=== PATIENT | female | born 1940 | race Caucasian/White ===

== ENCOUNTER → 2021-06-18 16:34 | Outpatient (BNVA) | payer MEDICARE, SELFPAY | PROVIDERS: Family Provider Internal Medicine; PCP Specialist; Visit Provider Family Medicine | DX: M25.442 Effusion, left hand (principal); W19.XXXA Unspecified fall, initial encounter | CPT/HCPCS: 73130; 81000 ==

== ENCOUNTER → 2022-10-24 16:24 | Outpatient (BNVA) | payer MEDICARE, SELFPAY | PROVIDERS: Family Provider Internal Medicine; PCP Specialist; Visit Provider Nurse Practitioner Family | DX: R30.0 Dysuria (principal) | CPT/HCPCS: 81000; 81003 ==

== ENCOUNTER → 2022-11-01 13:53 | Outpatient (BNVA) | payer MEDICARE, SELFPAY | PROVIDERS: Family Provider Internal Medicine; PCP Nurse Practitioner Family; Visit Provider Nurse Practitioner Family | DX: Z20.822 Contact with and (suspected) exposure to COVID-19 (principal); R53.83 Other fatigue; R68.89 Other general symptoms and signs | CPT/HCPCS: 87426 ==

== ENCOUNTER 2023-10-20 14:02 | Emergency (ER) | payer MEDICARE, SELFPAY ==
[2023-10-20 14:11] VITALS: BP 148/75; PULSE 71; TEMP 37.1; O2SAT 95; BMI 29.2
--- NOTE | 2023-10-20 14:20 | ED_ITS ---
HPI - Abdominal Pain 2 General: Chief Complaint: Abdominal Pain Stated Complaint: ABD PAIN Time Seen by Provider: 10/20/23 14:05 Source: patient Mode of arrival: ambulatory History of Present Illness: 83-year-old moderately demented female f rom the shelter comes with complaints of having been sick for last couple of weeks she lives at a shelter states her body is sore unable to give her much more specific than that there is no history of fever she did request to go the bathroom several times believe she is having frequency of urination although I cannot get her to admit she has any burning with urination. No fever on arrival here. No other history obtained because of her baseline dementia MD elicited complaint: abdominal pain Associated Symptoms: Denies chills and fever(s) Review of Systems 2 Const: Denies: fever(s) or chills Card: Denies: chest pain Resp: Denies: dyspnea GI: Denies: abdominal pain : Reports: urinary frequency Skin/Breast: Denies: rash PFSH ED 2 PFSH: Social History Smoking and tobacco/nicotine status: never used tobacco/nicotine Alcohol intake: never Physical Exam 2 Const: GENERAL APPEARANCE: cooperative and comfortable O RIENTATION/CONSCIOUSNESS: Yes awake HENMT: COMMON NORMALS: normocephalic, atraumatic and hearing grossly normal bilaterally HEAD & SCALP: normocephalic and atraumatic Resp: COMMON NORMALS: normal respiratory effort, No retractions, No use of accessory muscles and clear to auscultation bilaterally AUSCULTATION: clear to auscultation bilaterally Cardio: COMMON NORMALS: regular rate, regular rhythm and No murmurs present (Cardio) RATE: regular rate RHYTHM: regular rhythm GI: COMMON NORMALS: Soft to palpation and No hepatosplenomegaly present A USCULTATION: Yes normoactive bowel sounds PALPATION: Yes Soft to palpation, No Tenderness to palpation present (GI), No Guarding due to palpation present (GI) and Yes No hepatosplenomegaly present Extremity: COMMON NORMALS: normal to inspection, capillary refill normal, no clubbing, cyanosis or edema, no calf tenderness and no pedal edema Skin: COMMON NORMALS: no rashes or lesions noted GENERAL SKIN EXAM: no rashes or lesions noted Course 2 Vital Signs: Vital signs: Vital Signs Temperature 98.8 F 10/20/23 14:11 Pulse Rate 61 10/20/23 16:43 Respiratory Rate 18 10/20/23 16:43 Blood Pressure 173/84 10/20/23 16:43 Pulse Oximetry 98 10/20/23 16:43 Oxygen Delivery Me thod Room Air 10/20/23 16:43 MDM - Abdominal Pain Medical Decision Making Lipase is elevated but there is no evidence of pancreatitis on CT white count normal she does have a mild bladder infection was started on Macrobid twice daily and follow-up through her primary care return to the shelter today. Medical Records I reviewed the patient's medical records. Lab Data I reviewed the patient's lab results. 10/20/23 16:10 10/20/23 16:17 Labs/Radiology: Radiology Impressions Abdomen/Pelvis CT 10/20/23 14:28 IMPRESSION: 1. Images through the lower chest suggests small pericardial effusion and [id number] hiatal hernia. 2. Hyperdensity is seen layering within the dependent gallbladder, sludge and/or stones. Consider further evaluation with fasting gallbladder ultrasound. 3. Colonic diverticulosis, more prominent sigmoid colon, without CT findings of diverticulitis. 4. 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 Laboratory Results WBC 6.59 10^3/uL (3.29-11.43) 10/20/23 16:10 RBC 3.93 10^6/uL (3.85-5.65) 10/20/23 16:10 Hgb 10.70 g/dL (11.27-16.99) L 10/20/23 16:10 Hct 36.9 % (36-47) 10/20/23 16:10 MCV 93.9 fl (85-98) 10/20/23 16:10 MCH 27.2 pg (27-33) 10/20/23 16:10 MCHC 29.0 g/dL (30-55) L 10/20/23 16:10 RDW 16.8 % (12.1-15.1) H 10/20/23 16:10 Plt Count 394 10^3/cmm (157-399) 10/20/23 16:10 MPV 10.3 fL (7.4-10.4) 10/20/23 16:10 Neut % (Auto) 68.3 % 10/20/23 16:10 Lymph % (Auto) 19.6 % 10/20/23 16:10 [place] % (Auto) 10.2 % 10/20/23 16:10 Eos % (Auto) 1.1 % 10/20/23 16:10 Baso % (Auto) 0.5 % 10/20/23 16:10 Neut # (Auto) 4.51 10^3/uL (1.8-7.7) 10/20/23 16:10 Lymph # (Auto) 1.3 10^3/uL (0.8-4.8) 10/20/23 16:10 [place] # (Auto) 0.7 10^3/uL (0.2-0.9) 10/20/23 16:10 Eos # (Auto) 0.1 10^3/uL (0.0-0.8) 10/20/23 16:10 Baso # (Auto) 0.0 10^3/uL (0.0-0.1) 10/20/23 16:10 Nucleated RBC % (auto) 0 % 10/20/23 16:10 Nucleated RBCs # 0.0 /100WBC 10/20/23 16:10 Sodium 141 mmol/L (136-145) 10/20/23 16:17 Potassium 3.6 mmol/L (3.5-5.1) 10/20/23 16:17 Chloride 105 mmol/L (98-107) 10/20/23 16:17 Carbon Dioxide 19 mmol/L (22-29) L 10/20/23 16:17 Anion Gap 20.6 (5-19) H 10/20/23 16:17 BUN 21 mg/dL (8-23) 10/20/23 16:17 Creatinine 1.0 mg/dL (0.5-0.9) H 10/20/23 16:17 GFR Calculation Not Reportable 10/20/23 16:17 Glucose 91 mg/dL (65-115) 10/20/23 16:17 Calculated Osmolality 295 mOsm/kg (285-295) 10/20/23 16:17 Lactic Acid 1.7 mmol/L (0.5-2.2) 10/20/23 16:17 Calcium 8.7 mg/dL (8.5-10.5) 10/20/23 16:17 Total Bilirubin 0.6 mg/dL (0.15-1.2) 10/20/23 16:17 AST 62 U/L (0-32) H 10/20/23 16:17 ALT 30 U/L (0-33) 10/20/23 16:17 Alkaline Phosphatase 65 U/L (35-105) 10/20/23 16:17 NT-Pro-B Natriuret Pep 1555 pg/mL (0-450) H 10/20/23 16:17 Total Protein 6.4 g/dL (6.6-8.7) L 10/20/23 16:17 Albumin 3.7 g/dL (3.5-5.2) 10/20/23 16:17 Globulin 2.7 g/dL (1.3-4.6) 10/20/23 16:17 Lipase 80 U/L (13-60) H 10/20/23 16:17 Urine Color Yellow (Yellow) 10/20/23 15:40 Urine Appearance Clear (CLEAR) 10/20/23 15:40 Urine pH 5 (5-7) 10/20/23 15:40 Ur Specific [place] 1.020 (1.005-1.030) 10/20/23 15:40 Urine Protein Neg (Negative) 10/20/23 15:40 Urine Glucose (UA) Norm (Normal) 10/20/23 15:40 Urine Ketones 1+ (Negative) H 10/20/23 15:40 Urine Blood Neg (Negative) 10/20/23 15:40 Urine Nitrate Negative (Negative) 10/20/23 15:40 Urine Bilirubin Neg (Negative) 10/20/23 15:40 Urine Urobilinogen Norm mg/dL (Negative) 10/20/23 15:40 Ur Leukocyte Esterase 1+ (Negative) H 10/20/23 15:40 Urine RBC 0-4 /hpf (0-2) H 10/20/23 15:40 Urine WBC 5-10 /hpf (0-5) H 10/20/23 15:40 Ur Squamous Epith Cells 0-4 /hpf (0-5) H 10/20/23 15:40 Amorphous Sediment Not Reportable 10/20/23 15:40 Urine Bacteria Trace /hpf (NONE) 10/20/23 15:40 Hyaline Casts 5-10 /lpf H 10/20/23 15:40 Urine Mucus 1+ /hpf 10/20/23 15:40 All radiology interpretation(s) finalized by discharge Discharge Plan Discharge Patient Disposition: Home Clinical Impression: Cystitis Condition: Stable Prescriptions: New Macrobid 100 mg capsule 100 mg PO BID 7 Days Qty: 14 0RF Rx Instructions: must administer with a meal/food No Action celecoxib [Celebrex] 200 mg capsule 200 mg PO DAILY tramadol 50 mg tablet 100 mg PO Q6H levothyroxine 75 mcg tablet 75 mcg PO DAILY pregabalin [Lyrica] 75 mg capsule 75 mg PO DAILY vitamin E 200 unit capsule 200 unit PO DAILY aspirin [Adult Low Dose Aspirin] 81 mg tablet,delayed release (DR/EC) 81 mg PO DAILY calcium carbonate [Calcium 500] 500 mg calcium (1,250 mg) tablet 500 mg PO DAILY mecobalamin (vitamin B12) 5,000 mcg tablet,disintegrating PO trazodone 100 mg tablet 50 mg PO .at hs PRN nitrofurantoin monohyd/m-cryst [Macrobid] 100 mg capsule 100 mg PO Q12H 5 Days Qty: 10 0RF Rx Instructions: must administer with a meal/food ondansetron 8 mg tablet,disintegrating 8 mg PO Q8H PRN (Reason: nausea and vomiting) Qty: 30 0RF Discharge Orders: Discharge ED (Routine); Ordered 10/20/23 Ordered By: Alvarado Hook Referrals: Jolynn Guevara, APPRAISER [Primary Care Provider] - Discharge Diet: Usual diet Discharge Activity: Resume usual activity Patient Instructions: Urinary Tract Infection in Women (ED), Opioid Safety, Pain Management Activity Restrictions/Additional Instructions: Thank you for choosing [facility] for your healthcare needs today. Please realize this is an emergency room and that we are providing you with a medical screening exam and this may not be complete and all inclusive of all the testing and or work up that you may need to determine your ailment or severity of your illness. It is very important that you follow up as instructed or that you return to the Emergency Department should you have concerns or if your condition changes or worsens in any way. Coding Level of Care Code ED J[employer] Valet for Jesse Scott
--- NOTE | 2023-10-20 14:28 | CTR_ITS ---
PROCEDURE INFORMATION: Exam: CT Abdomen And Pelvis Without Contrast Exam date and time: 10/20/2023 3:17 PM Age: 83 years old Clinical indication: Abdominal pain; Generalized TECHNIQUE: Imaging protocol: Computed tomography of the abdomen and pelvis without contrast. Radiation optimization: All CT scans at this facility use at least one of these dose optimization techniques: automated exposure control; mA and/or kV adjustment per patient size (includes targeted exams where dose is matched to clinical indication); or iterative reconstruction. COMPARISON: No relevant prior studies available. RADIATION DOSE METRICS: Total DLP (mGy-cm): 794.52 FINDINGS: Lungs: No significant infiltrate or effusion is seen within the visualized lung bases. Heart: Small pericardial effusion suggested. Diaphragm: Qyaw-kn-xgfidwws hiatal hernia. Liver: Normal. No mass. Gallbladder and bile ducts: Hyperdensity is seen layering within the dependent gallbladder, sludge and/or stones. Consider further evaluation with fasting gallbladder ultrasound. No significant biliary ductal dilatation. Pancreas: Normal. No ductal dilation. Spleen: A few calcified granulomas within the spleen which is otherwise unremarkable. Adrenal glands: Normal. No mass. Kidneys and ureters: No urinary tract stone or obstructive uropathy or perinephric stranding. Kidneys appear unremarkable for unenhanced exam. Stomach and bowel: Unremarkable. No obstruction. No mucosal thickening. Colonic diverticulosis, more prominent sigmoid colon. No CT findings of diverticulitis. Appendix: No evidence of appendicitis. Intraperitoneal space: Unremarkable. No free air. No significant fluid collection. 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 Lymph nodes: Unremarkable. No enlarged lymph nodes. Urinary bladder: Unremarkable as visualized. Reproductive: Unremarkable as visualized. Bones/joints: Lumbar scoliosis. Degenerative change within the visualized thoracic and lumbar spine. Prior vertebroplasty within visualized T8 through T10 vertebra. Soft tissues: Partially visualized bilateral breast implants. CT/CT abdomen pelvis wo con [id number] IMPRESSION: 1. Images through the lower chest suggests small pericardial effusion and [id number] hiatal hernia. 2. Hyperdensity is seen layering within the dependent gallbladder, sludge and/or stones. Consider further evaluation with fasting gallbladder ultrasound. 3. Colonic diverticulosis, more prominent sigmoid colon, without CT findings of diverticulitis. 4. 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
[2023-10-20 15:44] VITALS: RESP 18; O2SAT 100
[2023-10-20 16:15] LABS: Add Urine Microscopic? YES; Bilirubin Urine Neg (Negative); Blood Urine Neg (Negative); Glucose Urine UA Norm (Normal); Ketones Urine 1+ (Negative); Leukocyte Esterase Urine 1+ (Negative); Nitrate Urine Negative (Negative); Protein Urine Neg (Negative); RBC Urine 0-4 /hpf (0-2); Urine Appearance Clear (CLEAR); Urine Color Yellow (Yellow); Urobilinogen Urine Norm (Negative); pH Urine 5 (5-7)
[2023-10-20 16:16] LABS: Add Urine Culture? No; Bacteria Urine TRACE /hpf; Mucus Urine 1+ /hpf; Squamous Epithelial Cell Urine 0-4 /hpf (0-5)
[2023-10-20 16:28] LABS: Basophils % 0.5 %; Eosinophils # 0.1 10^3/uL (0.0-0.8); Eosinophils % 1.1 %; Hematocrit 36.9 % (36-47); Lymphocytes # 1.3 10^3/uL (0.8-4.8); Lymphocytes % 19.6 %; Mean Corpuscular Hemoglobin 27.2 pg (27-33); Mean Corpuscular Volume 93.9 fl (85-98); Mean Platelet Volume 10.3 fL (7.4-10.4); Monocytes # 0.7 10^3/uL (0.2-0.9); Monocytes % 10.2 %; Neutrophils # 4.51 10^3/uL (1.8-7.7); Neutrophils % 68.3 %; Nucleated Red Blood Cells % 0 %; Platelet Count 394 10^3/cmm (157-399); Red Blood Count 3.93 10^6/uL (3.85-5.65); Red Cell Distribution Width 16.8 % (12.1-15.1); White Blood Count 6.59 10^3/uL (3.29-11.43)
[2023-10-20 16:43] VITALS: BP 173/84; PULSE 61; RESP 18; O2SAT 98
[2023-10-20 16:55] LABS: Lactic Sepsis W/Reflex 1.7 mmol/L (0.5-2.2)
[2023-10-20 17:00] LABS: Alanine Aminotransferase 30 U/L (0-33); Albumin Level 3.7 g/dL (3.5-5.2); Alkaline Phosphatase 65 U/L (35-105); Blood Urea Nitrogen 21 mg/dL (8-23); Calcium 8.7 mg/dL (8.5-10.5); Carbon Dioxide 19 mmol/L (22-29); Chloride 105 mmol/L (98-107); Globulin 2.7 g/dL (1.3-4.6); Glucose 91 mg/dL (65-115); Lipase 80 U/L (13-60); NT Pro B Type Natriuretic Pept 1555 pg/mL (0-450); Osmolality Calculated 295 mOsm/kg (285-295); Sodium 141 mmol/L (136-145); Total Bilirubin 0.6 mg/dL (0.15-1.2); Total Protein 6.4 g/dL (6.6-8.7)
[2023-10-20 17:15] LABS: Anion Gap 20.6 (5-19); Aspartate Amino Transferase 62 U/L (0-32); Potassium 3.6 mmol/L (3.5-5.1)
== END 2023-10-20 19:25 | disposition home or self-care (01) ==
PROVIDERS: Emergency Provider Family Medicine; PCP Nurse Practitioner Family
DX: N30.90 Cystitis, unspecified without hematuria (principal); Z79.82 Long term (current) use of aspirin
CPT/HCPCS: 36415; 74176; 80053; 81001; 83605; 83690; 83880; 85025; 87040; 99284

== ENCOUNTER → 2024-12-30 09:04 | Outpatient (BNVA) | payer MEDICARE, SELFPAY | PROVIDERS: PCP Nurse Practitioner Family; Visit Provider Nurse Practitioner Family | DX: M19.042 Primary osteoarthritis, left hand (principal); M25.532 Pain in left wrist; M94.8X8 Other specified disorders of cartilage, other site; R93.6 Abnormal findings on diagnostic imaging of limbs | CPT/HCPCS: 73110; 73130 ==

== ENCOUNTER → 2025-01-05 09:39 | Outpatient (BNVA) | payer MEDICARE, SELFPAY | PROVIDERS: PCP Nurse Practitioner Family; Visit Provider Nurse Practitioner Family | DX: N39.0 Urinary tract infection, site not specified (principal) | CPT/HCPCS: 81000 ==

== ENCOUNTER → 2025-06-29 14:33 | Outpatient (BNVA) | payer MEDICARE, SELFPAY | PROVIDERS: PCP Nurse Practitioner Family; Visit Provider Family Medicine | DX: R30.0 Dysuria (principal); R10.A1 Flank pain, right side | CPT/HCPCS: 80053; 81000; 85025; 86140 ==